=== PATIENT | male | born 1965 | race Caucasian/White ===

== ENCOUNTER 2020-08-19 19:43 | Emergency (ER) | payer SELFPAY ==
[2020-08-19 20:27] LABS: #Basophils 0.1 thou/uL (0.0-0.2); #Eosinphils 0.2 thou/uL (0.0-0.7); #Lymphocytes 1.9 thou/uL (1.20-3.40); #Monocytes 0.3 thou/uL (0.11-0.59); #Neutrophils 4.4 thou/uL (1.40-6.50); %Basophils 0.8 % (0.0-1.0); %Eosinophils 3.3 % (0.0-10.0); %Lymphocytes 27.4 % (21.0-51.0); %Monocytes 4.5 % (0.0-10.0); Hemoglobin 13.7 g/dL (14.0-18.0); Mean Corpuscular HGB CONC 31.1 g/dL (32.0-36.0); Mean Corpuscular Hemoglobin 29.3 pg (27.0-31.0); Mean Corpuscular Volume 94.1 fL (78.0-98.0); Mean Platelet Volume 6.6 fL (7.4-10.4); Platelet Count 180 thou/uL (130-400); Red Blood Cell (RBC) Count 4.68 mill/uL (4.70-6.10); White Blood Cell (WBC) Count 6.9 thou/uL (4.8-10.8)
[2020-08-19 20:43] LABS: ALT (SGPT) 24 U/L (8-55); AST (SGOT) 19 U/L (5-34); Albumin 4.3 g/dL (3.5-5.0); Alkaline Phosphatase 78 U/L (40-110); Anion Gap 16 mmol/L (10-20); BUN (Urea Nitrogen) 16 mg/dL (8.4-25.7); Calc. Creatinine Clearance 0 mL/min (70-130); Calcium 9.5 mg/dL (7.8-10.44); Carbon Dioxide 28 mmol/L (22-29); Chloride 103 mmol/L (98-107); Estimated GFR-MDRD 80; Glucose 114 mg/dL (70-105); Potassium 3.5 mmol/L (3.5-5.1); Protein, Total 7.3 g/dL (6.0-8.3); Sodium 143 mmol/L (136-145)
[2020-08-19] MEDS ORDERED: Cephalexin 250 MG CAP ONE (21:20)
== END 2020-08-19 21:30 | disposition home or self-care (01) ==
LOC: BURERS 19:43
DX: L03.116 Cellulitis of left lower limb (principal); J45.909 Unspecified asthma, uncomplicated; F31.9 Bipolar disorder, unspecified; F17.210 Nicotine dependence, cigarettes, uncomplicated
CPT/HCPCS: 36415; 80053; 83880; 85025; 85379; 99283

== ENCOUNTER 2020-08-31 16:27 | Emergency (ER) | payer OTHER, SELFPAY ==
[2020-08-31] MEDS ORDERED: Acetaminophen 500 MG TAB ONE (17:24)
== END 2020-08-31 17:27 | disposition home or self-care (01) ==
LOC: BURERS 16:27
DX: S01.01XA Laceration without foreign body of scalp, initial encounter (principal); F17.210 Nicotine dependence, cigarettes, uncomplicated; W22.8XXA Striking against or struck by other objects, initial encounter
CPT/HCPCS: 12002

== ENCOUNTER 2020-09-01 19:07 | Emergency (ER) | payer SELFPAY ==
[2020-09-01] MEDS ORDERED: Acetaminophen 500 MG TAB ONE (19:59)
--- NOTE | 2020-09-01 20:41 | RAD ---
RIGHT FOOT THREE VIEWS: Date: 09-01-2020 FINDINGS: Projection of the middle phalanx of the fifth digit with the distal is abnormal. The base of the dist al phalanx is very irregular, suggesting trauma has occurred here at some point, though it may be rem ote rather than acute. The findings should be correlated with the exact site of pain. The remaining b ones of the foot appeared intact with no other fractures visible. IMPRESSION: Traumatic change at the PIP joint of the fifth digit, not necessarily acute. Correlate with clinical exam. Code T POS: HOME
== END 2020-09-01 20:55 | disposition home or self-care (01) ==
LOC: BURERS 19:07
DX: S92.531A Displaced fracture of distal phalanx of right lesser toe(s), initial encounter for closed fracture (principal); S90.31XA Contusion of right foot, initial encounter; S80.02XA Contusion of left knee, initial encounter; S80.01XA Contusion of right knee, initial encounter; F17.210 Nicotine dependence, cigarettes, uncomplicated; V09.9XXA Pedestrian injured in unspecified transport accident, initial encounter

== ENCOUNTER 2021-02-03 00:29 | Emergency (ER) | payer SELFPAY | END 2021-02-03 00:44 | disposition home or self-care (01) | LOC: BURERS 00:29 | DX: S86.911A Strain of unspecified muscle(s) and tendon(s) at lower leg level, right leg, initial encounter (principal); F17.210 Nicotine dependence, cigarettes, uncomplicated | CPT/HCPCS: 99281 ==

== ENCOUNTER 2021-02-09 01:54 | Emergency (ER) | payer SELFPAY | END 2021-02-09 02:33 | disposition home or self-care (01) | LOC: BURERS 01:54 | DX: K59.00 Constipation, unspecified (principal); F17.210 Nicotine dependence, cigarettes, uncomplicated; Z79.899 Other long term (current) drug therapy | CPT/HCPCS: 74022 ==